=== PATIENT | female | born 1960 ===

== ENCOUNTER 2021-10-05 08:45 | Inpatient (IN) | payer OTHER ==
[~2021-10-05] VITALS: Ht 167.6 cm; Wt 103.9 kg
[2021-10-05] MEDS ORDERED: ZESTRIL5 MG PO (10:32)
[2021-10-05] MEDS ORDERED: BYDUREON B2 MG/0.85 (10:38)
[2021-10-11] MEDS ORDERED: ESCITALOPRAM OX10 MG (14:14)
[2021-10-11] MEDS ORDERED: PANTOPRAZOLE SO40 MG (14:14)
[2021-10-11] MEDS ORDERED: GAVISCON LIQUI355 ML (14:14)
[2021-10-11] MEDS ORDERED: ATORVASTATIN CA10 MG (14:14)
[2021-10-11] MEDS ORDERED: FAMOTIDINE20 MG (14:14)
[2021-10-11] MEDS ORDERED: FARXIGA10 MG (14:15)
== END 2021-10-13 10:20 | disposition home or self-care (01) | DRG 661 ==
LOC: SURG 10-11 08:45 → O/R 10-11 12:32 → SURG 10-11 19:58 → SURH 10-11 20:02 → O/R 10-11 20:11 → SURH 10-11 22:08
PROVIDERS: ADMIT Urology; ATTEND Urology
PROC: BT1FZZZ Fluoroscopy of Left Kidney, Ureter and Bladder (ICD-10-PCS; 2021-10-11)
PROC: 0TC43ZZ Extirpation of Matter from Left Kidney Pelvis, Percutaneous Approach (ICD-10-PCS; principal; 2021-10-11 11:00)
DX: N20.0 Calculus of kidney (principal); I10 Essential (primary) hypertension; E11.9 Type 2 diabetes mellitus without complications; Z79.4 Long term (current) use of insulin